=== PATIENT | female | born 1970 | race American Indian/Alaskan Native ===

== ENCOUNTER 2017-09-22 02:50 | Emergency (ER) | payer MEDICAID ==
[2017-09-22 03:45] VITALS: BP 146/100
[2017-09-22 06:03] LABS: HCG Qualitative,Urine Negative (Negative)
== END 2017-09-22 07:00 | disposition left against medical advice (07) ==
LOC: ED 02:50
DX: R51 Headache (principal); Z53.21 Procedure and treatment not carried out due to patient leaving prior to being seen by health care provider
CPT/HCPCS: 81025